=== PATIENT | male | born 1960 | race Caucasian/White ===

== ENCOUNTER 2016-09-12 17:47 | Emergency (ER) | payer MEDICAID, OTHER ==
[~2016-09-12] VITALS: Ht 175.3 cm; Wt 78.0 kg
[2016-09-12 17:52] VITALS: Ht 175.3 cm; Wt 78.0 kg
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
[2016-09-12] MEDS ORDERED: DIPHTH/TET/ACEL PERTUSS (ADULT) 0.5 ML VIAL IM* ONE (18:30)
[2016-09-12] MEDS ORDERED: IBUPROFEN 800 MG TAB PO ONE (18:30)
--- NOTE | 2016-09-12 19:13 | RADRPT ---
PROCEDURE: X-ray right leg CLINICAL INDICATION: Injury to right leg with concern for osteomyelitis and retained radiopaque fo reign body. TECHNIQUE: 3 views right leg. COMPARISON: None. FINDINGS: No evident retained radiopaque foreign body in region of laceration of the distal right leg. No consuelo in film evidence of osteomyelitis. Consider MR correlation if clinically required. No evident acut e fracture. IMPRESSION: 1. No evident retained radiopaque foreign body. 2. No plain film evidence of osteomyelitis. 3. Consider MRI correlation if clinically required. RPTAT: [facility] Physician [place] Date Time Electronically viewed and signed by Physician Dallas on 09/12/2016 19:12 RS/
[2016-09-12] MEDS ORDERED: CLIN-73 PO (20:22)
[2016-09-12] MEDS ORDERED: HYDR-906 PO (20:22)
[2016-09-12 20:29] VITALS: BP 135/92; PULSE 61; TEMP 98.1
== END 2016-09-12 20:52 | disposition home or self-care (01) ==
LOC: FTE 17:47
DX: S81.811A Laceration without foreign body, right lower leg, initial encounter (principal); S81.831A Puncture wound without foreign body, right lower leg, initial encounter; V17.4XXA Pedal cycle driver injured in collision with fixed or stationary object in traffic accident, initial encounter; Z23 Encounter for immunization
CPT/HCPCS: 73590; 90715; Z7610; 90471

== ENCOUNTER 2016-09-15 16:16 | Emergency (ER) | payer MEDICAID ==
[~2016-09-15] VITALS: Wt 74.5 kg
[~2016-09-15 16:16] MED LIST: CLIN-73 PO; HYDR-906 PO
[2016-09-15] MEDS ORDERED: BACITUD TOP (16:33)
--- NOTE | 2016-09-15 16:44 | ERD ---
ER Documentation Chief Complaint Date/Time DATE: 09/15/16 TIME: 16:41 Chief Complaint RIGHT LOWER WOUND CHEC K HPI This is a 55-year-old male presents to the ER for laceration wound check. Patient was seen here 3 days ago stain that he obtain a laceration over a week ago however did not seek medical care for the laceration. Patient denies any fevers or chills. He states that the wound is getting better. He denies any numbness or tingling to his lower extremity. He denies any weakness to his lower extremity. He is able to ambulate without any pain. Patient is currently homeless and states that he was not able to fill his [place] because he does not have a [place] state ID and cannot afford to get a [place] state ID. ROS 12 point review of systems was done, all negative except per HPI. Medications Home Meds Active Scripts Bacitracin* (Bacitracin Oint (UD)*) 1 Applic Oint, 1 APPLIC TOP ONCE for 7 Days , PKT APPLY TO Prov:RUSS JIMENEZ 09/15/16 Hydrocodone/Acetaminophen ([place] 5-325 Tablet) 1 Each Tablet, 1 TAB PO Q6H Y for PAIN, #7 TAB Prov:WALLY TAM F 09/12/16 Clindamycin Hcl* (Clindamycin Hcl*) 300 Mg Capsule, 300 MG PO TID for 10 Days, CAP Prov:PASILABAN,ANNAAR F 09/12/16 Allergies Allergies: Coded Allergies: No Known Allergy (Verified , 06/21/14) PMhx/Soc Hx Alcohol Use: Yes (social) Hx Substance Use: No Hx Tobacco Use: No Physical Exam Vitals Vital Signs Date Time Temp Pulse Resp B/P Pulse Ox O2 Delivery O2 Flow Rate FiO2 09/15/16 16:19 98.5 82 18 130/82 99 Physical Exam GENERAL: Patient has poor hygiene and somewhat confused language. HEENT: Atraumatic. CHEST: Clear to auscultation bilaterally. There are no rales, wheezes or rhonchi. HEART: Regular rate and rhythm. No murmurs, clicks, rubs or gallops. EXTREMITIES: There is a healing laceration to the right distal tibia. There is no wound discharge, surrounding erythema, erythema of the area. NEURO: Alert and oriented. Procedures/MDM This is a 55-year-old male presents to the ER for wound check. Patient's wound appears to be healing appropriately without any evidence of infection. It was not sutured, likely because the laceration had been there for over a week when patient presented to the ER for the first time. Wound was irrigated with copious amounts of normal saline, bacitracin was added and wound was dressed. I gave the patient a prescription for bacitracin to continue to apply to the area twice a day for the next week. Patient needs to follow-up with his primary care doctor within 1-2 days or return to ER sooner symptoms worsen. My medical decision making was shared with the patient he understands and agrees with plan. Departure Diagnosis: Primary Impression: Visit for wound check Condition: Stable Patient Instructions: Wound Check, Lac F/U (No Infection) Additional Instructions: Call your primary care doctor TOMORROW for an appointment during the next 1-2 days.See the doctor sooner or return here if your condition worsens before your appointment time. RUSS JIMENEZ Sep 15, 2016 16:44
== END 2016-09-15 16:38 | disposition home or self-care (01) ==
LOC: E/R 16:16
DX: Z48.01 Encounter for change or removal of surgical wound dressing (principal)
CPT/HCPCS: 99283

== ENCOUNTER 2016-10-01 20:28 | Emergency (ER) | payer MEDICAID ==
[~2016-10-01] VITALS: Ht 182.9 cm; Wt 73.5 kg
[~2016-10-01 20:28] MED LIST changes: +BACITUD TOP
[2016-10-01 20:29] VITALS: Ht 182.9 cm; Wt 73.5 kg
[2016-10-01] MEDS ORDERED: BACITRACIN 0.9 GM OINT TOP ONE (21:30)
--- NOTE | 2016-10-01 22:08 | RADRPT ---
PROCEDURE: XR Knee. CLINICAL INDICATION: Right knee pain. TECHNIQUE: 4 views of the right knee. COMPARISON: None available FINDINGS: There is oblique fracture of the patella. The joint spaces are preserved. A suprapatellar joint ef fusion is identified. There is prepatellar soft tissue swelling. IMPRESSION: 1. Oblique fracture of the patella. 2. Suprapatellar joint effusion. 3. Prepatellar soft tissue swelling per RPTAT: HTAR .Ebenezer Awan MD, Date Time Electronically viewed and signed by .Ebenezer Awan MD, on 10/01/2016 22:08 .R/
[2016-10-01] MEDS ORDERED: CEPH-443 PO (22:21)
[2016-10-01] MEDS ORDERED: TRAM50TA2 PO (22:21)
[2016-10-01] MEDS ORDERED: SULF1TAB31 PO (22:21)
[2016-10-01] MEDS ORDERED: MUPI22OI2 TOP (22:21)
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
== END 2016-10-01 22:54 | disposition home or self-care (01) ==
LOC: FTE 20:28
DX: S82.091A Other fracture of right patella, initial encounter for closed fracture (principal); L03.115 Cellulitis of right lower limb; V18.4XXA Pedal cycle driver injured in noncollision transport accident in traffic accident, initial encounter
CPT/HCPCS: 29505; 73562; Z7502